=== PATIENT | female | born 1960 | race African-American/Black ===

== ENCOUNTER → 2017-09-20 | Outpatient (CLI) | payer MEDICARE, BC, MEDICAID ==
[~2017-09-20] MED LIST: AMBIEN 5 MG TABL5 M1 PO; ARMOUR THYROID30 M1 PO; BENADRYL25 MG PO; CALM POWDER; CARDIZEM60 MG PO; COZAAR 50 MG TA50 M2 PO; FISH OIL 1,001000 M2 PO; HYDROCHLOROTHIA25 M2 PO; KEFLEX500 M1 PO; MAGOX 400400 MG PO; MELATONIN5 M1 PO; OIL OF OREGAN1500 MG PO; ZYRTEC10 M5 PO; [UNRECOGNIZED DRUG - OTHER]; [UNRECOGNIZED DRUG - OTHER]
== END ==
LOC: M.RAD 08:10
DX: Z12.31 Encounter for screening mammogram for malignant neoplasm of breast (principal)

== ENCOUNTER → 2017-11-12 | Outpatient (CLI) | payer MEDICARE, BC, MEDICAID | LOC: M.RAD 13:40 | DX: M85.80 Other specified disorders of bone density and structure, unspecified site (principal); Z78.0 Asymptomatic menopausal state ==

== ENCOUNTER 2018-02-20 02:17 | Emergency (ER) | payer OTHER, BC, MEDICAID ==
[~2018-02-20] VITALS: Ht 157.5 cm; Wt 64.4 kg
[2018-02-20] MEDS ORDERED: ARMOUR THYROID30 M1 PO (02:26)
[2018-02-20] MEDS ORDERED: HYDROCHLOROTHIA25 M2 PO (02:27)
[2018-02-20] MEDS ORDERED: CARDIZEM60 MG PO (02:27)
[2018-02-20] MEDS ORDERED: COZAAR 50 MG TA50 M2 PO (02:27)
[2018-02-20] MEDS ORDERED: MELATONIN5 M1 PO (02:28)
[2018-02-20] MEDS ORDERED: AMBIEN 5 MG TABL5 M1 PO (02:28)
[2018-02-20] MEDS ORDERED: MAGOX 400400 MG PO (02:29)
[2018-02-20] MEDS ORDERED: BENADRYL25 MG PO (02:29)
[2018-02-20] MEDS ORDERED: ZYRTEC10 M5 PO (02:29)
[2018-02-20] MEDS ORDERED: FISH OIL 1,001000 M2 PO (02:29)
[2018-02-20] MEDS ORDERED: OIL OF OREGAN1500 MG PO (02:30)
[2018-02-20] MEDS ORDERED: [UNRECOGNIZED DRUG - OTHER] (02:30)
[2018-02-20] MEDS ORDERED: [UNRECOGNIZED DRUG - OTHER] (02:30)
[2018-02-20] MEDS ORDERED: CALM POWDER (02:31)
[2018-02-20 03:02] LABS: URINE CLARITY CLEAR; URINE COLOR YELLOW; URINE SPECIFIC GRAVITY < 1.005 (1.005-1.030)
[2018-02-20 03:03] LABS: URINE BILIRUBIN NEGATIVE (Negative); URINE BLOOD NEGATIVE (Negative); URINE GLUCOSE-RANDOM NEGATIVE (Negative); URINE KETONES NEGATIVE (Negative); URINE LEUKOCYTES-REFLEX TRACE (Negative); URINE NITRITE-REFLEX NEGATIVE (Negative); URINE PROTEIN NEGATIVE (Negative); URINE UROBILINOGEN 0.2 E.U./dl (0.2-1.0)
[2018-02-20 03:40] LABS: AMP/METHAMP Negative (Negative); BARBITURATES Negative (Negative); BENZODIAZEPINES Negative (Negative); COCAINE Negative (Negative); METHADONE Negative (Negative); OPIATES Negative (Negative); PCP Negative (Negative); THC Negative (Negative)
[2018-02-20 03:42] LABS: SQUAMOUS 0-3 Few /LPF (0-3)
[2018-02-20 03:43] LABS: CASTS None Seen /LPF (None Seen); CRYSTALS None Seen /LPF (None Seen); MUCUS None Seen strn/LPF (None Seen); URINE RBC 3-10 Few /HPF (0-2); URINE WBC-REFLEX 0-5 Rare /HPF (0-5)
[2018-02-20] MEDS ORDERED: KEFLEX500 M1 PO (04:08)
[2018-02-20 04:24] VITALS: BP 142/94
== END 2018-02-20 04:26 | disposition home or self-care (01) ==
LOC: M.ERS 02:17
PROVIDERS: Personal Emergency Response Attendant
DX: N39.0 Urinary tract infection, site not specified (principal); I10 Essential (primary) hypertension; Z88.8 Allergy status to other drugs, medicaments and biological substances